=== PATIENT | female | born 1965 | race Caucasian/White ===

== ENCOUNTER 2025-01-28 12:16 | Emergency (ER) | payer BC, SELFPAY ==
[2025-01-28 12:22] VITALS: BP 122/57
[2025-01-28 12:59] LABS: Hematocrit 40.4 % (37.0-47.0); Hemoglobin 13.2 g/dL (12.0-16.0); Mean Corp Hgb Conc. 32.7 g/dL (33.0-37.0); Mean Corpuscular Volume 89.0 fL (81.0-99.0); Nucleated Red Blood Cells % 0 %; Platelet Count 265 10^3/uL (130-400); Red Cell Dist. Width 12.3 % (11.5-14.5)
[2025-01-28 13:11] LABS: Urine Character Clear (Clear)
[2025-01-28 13:21] LABS: ALT (SGPT) 25 U/L (0-35); AST (SGOT) 23 U/L (14-36); Albumin 4.8 g/dl (3.5-5.0); Alkaline Phosphatase 109 U/L (38-126); Blood Urea Nitrogen 12 mg/dl (7-17); Calcium 10.1 mg/dl (8.4-10.2); Carbon Dioxide 29 mmol/L (22-30); Chloride 102 mmol/L (98-107); Glucose 104 mg/dl (70-99); Potassium 4.0 mmol/L (3.5-5.1); Sodium 137 mmol/L (135-145); Total Protein 8.0 g/dl (6.3-8.2); eGFR > 60.00
[2025-01-28 13:26] LABS: Urine Red Blood Cell None Seen /HPF (0-2)
--- NOTE | 2025-01-28 13:33 | ED.GENMED ---
History of Present Illness
General
Chief Complaint: Abdominal Pain
Exam Limitations: none
Time Seen by Provider: 01/28/25 12:51
Nursing documentation reviewed up to this point in time: agreed with
History of Present Illness
History of Present Illness:
Patient is a 59-year-old female history of diverticulitis with previous sigmoid resection at [facility] (2020)presents with lower abdominal pain mild back pain for the past several days. She denies any fever chills nausea vomiting. She
does see urogynecologist for overactive bladder and at times has some burning with urination but this is not new. She has had this for months. In addition she noted a little bit of bright red blood when she wiped on the toilet paper and was going
concerned about hemorrhoids. She reports stool is brown in color denies any black or dark stools. She is on blood thinners. She has been evaluated by GI here in the past last colonoscopy documented 2020
Past History
Past History
ED Past Medical History: Arrthythmia (SVT) and Other (Diverticulosis, Thrush, ovarian cyst, gout, Lyme disease, frozen shoulder, Covid pneumonia 04/21/20)
ED Past Surgical History: Cardiac (SVT ablation), Orthopedic (Shoulder surgery) and Other (Hernia repair)
Social History
Tobacco: Former smoker
Alcohol: Occasional
Personal:
Living: with family
Employment: Employed
Family History
Family History: Other (Noncontributory)
Phy Exam
General Physical Exam
General Presentation: no apparent distress
General age: appears stated age
General Skin: warm and dry
General Habitus: normal
General Mental: alert
General Hydration: appears well hydrated
Cardiovascular Exam
Cardiovascular Exam: regular rate/rhythm, no murmur and normal peripheral pulses
Pulmonary Exam
Pulmonary Exam: lungs clear and no respiratory distress
Gastrointestinal Exam
Gastrointestinal Exam: non tender, soft and other (rectal exam: no stool on exam, small external hemorrhoid )
Neurological Exam
Neurological Exam: alert and oriented x3
Musculoskeletal Exam
Musculoskeletal Exam: full ROM
Skin Exam
Skin Exam: normal color and warm/dry
Psychiatric Exam
Psychiatric Exam: normal mood/affect
Course
Orders/Labs/Results
Orders:
Orders
01/28/25 12:36
Complete Blood Count/With Diff Urgent
Comprehensive Metabolic Panel Urgent
01/28/25 12:40
Urinalysis Reflex To Culture Urgent
Date Specimen was Collected: 01/28/25
Time Specimen was Collected: 12:25
Urine Microscopic Reflex Cult Urgent
Urine Culture Urgent
ABENA Source: U
Specimen Description:
Date Specimen was Collected: 01/28/25
Time Specimen was Collected: 12:25
01/28/25 13:33
CT Abd/pel W Iv And Oral Contr Urgent
Comment:
Reason For Exam: abd pain hx of sigmoidectomy
Iohexol [Omnipaque] See Protocol PO NOW STA
01/28/25 13:34
0.9% Sodium Chloride 1000 ml [Nss] 1,000 ml IV BOLUS
Ondansetron Injectable [Zofran] 4 mg IV NOW STA
01/28/25 17:15
Ketorolac [Toradol] 15 mg IV NOW STA
01/28/25 17:38
Amoxicillin 875 mg/Clav 125 mg [Augmentin 875 mg/125 mg] 1 tablet PO NOW STA
Abnormal Lab Results
01/28/25 01/28/25
12:36 12:40
WBC 12.5 H 10^3/uL
(4.8-10.8)
MCHC 32.7 L g/dL
(33.0-37.0)
Absolute Neuts (auto) 10.0 H 10^3/uL
(1.4-6.5)
Absolute Monos (auto) 0.7 H 10^3/uL
(0.1-0.6)
Neutrophils % 80.1 H %
(42.2-75.2)
Lymphocytes % 13.4 L %
(20.5-51.1)
Glucose 104 H mg/dl
(70-99)
Leukocyte Esterase Rfl 1+ A
(Negative)
Urine Bacteria (Reflex) Few A
(Negative)
01/28/25 12:36
01/28/25 12:36
Vital Signs
Initial and Last Documented VS:
Initial Vital Signs
Temp Pulse Resp BP Pulse Ox
98.9 F 110 16 122/57 98
01/28/25 12:22 01/28/25 12:22 01/28/25 12:22 01/28/25 12:22 01/28/25 12:22
Last Documented Vital Signs
Temp Pulse Resp BP Pulse Ox
98.9 F 74 16 104/84 99
01/28/25 12:22 01/28/25 17:21 01/28/25 17:21 01/28/25 17:21 01/28/25 17:21
MDM/Problems Addressed
Differential Diagnosis Includes:
Not limited to constipation, less likely bowel obstruction diverticulitis UTI
MDM/Problems Addressed:
Patient is well-appearing in no acute distress here in the ER CAT scan does show segmental moderate sigmoid diverticulitis no perforation no abscess. Patient is afebrile white count is very minimally elevated 12.5. She is very well-appearing and
nontoxic. Urinalysis negative for infection chemistries unremarkable. Will DC home with Augmentin twice a day for the next 10 days with outpatient follow-up by GI at her family doctor. She is a patient of [facility].
Chronic conditions affecting care:
Sigmoid resection
*Radiology
Radiology exam reviewed: radiology read reviewed
*Pulse Oximetry
SaO2: 98
Oxygen Mode of Delivery: Room air
Patient hypoxic: no
*Critical Care Note
Total Time (30-74mins, 75-104mins- exclusive of procedures): Not Applicable
ED Attending Note
-
Portions of this chart may have been created with voice recognition software.� Occasional wrong word or��sound alike� substitutions may have occurred due to the inherent limitations of voice recognition software.
Discharge Plan
Departure
Patient Disposition: Home (Routine Discharge)
Date of Disposition: 01/28/25
Time of Disposition: 17:48
Patient with high blood pressure during this ER visit?: No
Condition: Fair
Covid-19: Not Applicable
Discharge Problem:
Acute diverticulitis
Instructions: Diverticulitis (DC)
Prescriptions:
New
amoxicillin-pot clavulanate 875-125 mg tablet
1 tab PO BID Qty: 20 0RF
No Action
L.acidoph,paracasei,B.animalis 1 EACH capsule
1 ea PO BID
metoprolol tartrate 25 MG tablet
25 mg PO DAILYPRN PRN (Reason: svt) Qty: 0 0RF
Rx Instructions:
do not take if your blood pressure is low (SBP < 100)
amoxicillin-pot clavulanate 1 TABLET tablet
1 tab PO Q12 Qty: 20 0RF
Referrals:
Donovan Sylvester MD [Active, Gastroenterology]
Yoanna Montilla DO [Family Provider, Family Practice]
Activity Restrictions/Additional Instructions:
As discussed bland diet for the next several days. Antibiotics as directed for the next 10 days. This was sent to your pharmacy. You were given the first dose here in the ER. Please follow-up with family doctor in the next several days as well
as GI. Please call to make an appointment. Return however if any worsening of symptoms or increased pain vomiting fever chills or any further concerns.
Interventions
Interventions:
*Risk Screen - Suicide Last Done: 01/28/25 12:22
*General Assessment Last Done: 01/28/25 12:22
*Neglect/Abuse Screening Last Done: 01/28/25 12:22
*ED- Fall Risk Assessment Last Done: 01/28/25 12:22
*ED COVID-19 Vaccine History Last Done: 01/28/25 12:22
*ED Influenza Vaccine History Last Done: 01/28/25 12:22
OZ-Lzzcfg-Rdzfcwzywf Assessment Last Done: 01/28/25 14:24
Discharge Date and Time
Print Language: NEPALI
[2025-01-28] MEDS: OMNIPAQUE 50 ML PO (14:01)
[2025-01-28] MEDS: ZOFRAN 4 MG IV (14:13)
[2025-01-28] MEDS: NSS 1000 IV (14:13)
[2025-01-28] MEDS: TORADOL 15 MG IV (17:19)
[2025-01-28 17:21] VITALS: BP 104/84
[2025-01-28] MEDS: AUGMENTIN 875 MG/125 MG 1 TABLET PO (17:44)
== END 2025-01-28 18:02 | disposition home or self-care (01) ==
LOC: EMR 12:16
PROVIDERS: Student in an Organized Health Care Education/Training Program; EMERGENCY PHYSICIAN Emergency Medicine; FAMILY PHYSICIAN Family Medicine
DX: K57.32 Diverticulitis of large intestine without perforation or abscess without bleeding (principal); K64.4 Residual hemorrhoidal skin tags; Z79.01 Long term (current) use of anticoagulants; Z90.49 Acquired absence of other specified parts of digestive tract; Z87.891 Personal history of nicotine dependence
CPT/HCPCS: 96374; 96375; 96361; 99284; 74177; 80053; 81003; 81015; 85025; 87086; Q9967